=== PATIENT | male | born 1995 | race Caucasian/White ===

== ENCOUNTER 2018-06-25 15:36 | Emergency (ER) | payer OTHER, SELFPAY ==
--- NOTE | 2018-06-25 16:27 | RAD REPORT ---
EXAM DESCRIPTION: RAD - Hand Left 3 View - 06/25/2018 4:18 pm CLINICAL HISTORY: PAIN COMPARISON: No comparisons FINDINGS: No fracture or dislocation is seen of the left hand.
--- NOTE | 2018-06-25 16:44 | ER ---
Nurse's Notes [facility] Name: Kenyon Ricardo Age: 23 yrs Sex: Male : 1995 Arrival Date: 06/25/2018 Time: 15:39 Bed 20 Private MD: None, None Diagnosis: Sprain of other part of left wrist and hand Presentation: 06/25 15:42 Presenting complaint: Patient states: I punched a concrete wall with my left hand a la1 couple days ago and it is still hurting me, Pt reports pain in left wrist and hand. Transition of care: patient was not received from another setting of care. Onset of symptoms was June 25, 2018. Risk Assessment: Do you want to hurt yourself or someone else? Patient reports no desire to harm self or others. Initial Sepsis Screen: Does the patient meet any 2 criteria? No. Patient's initial sepsis screen is negative. Does the patient have a suspected source of infection? No. Patient's initial sepsis screen is negative. Care prior to arrival: None. 15:42 Method Of Arrival: Ambulatory la1 15:42 Acuity: ZEFERINO 4 la1 Historical: - Allergies: 15:43 No Known Allergies; la1 - PMHx: 15:43 None; la1 - Immunization history:: Adult Immunizations up to date. - Social history:: Smoking status: Patient uses tobacco products, smokes one pack cigarettes per day. - Ebola Screening: : No symptoms or risks identified at this time. Screenin:00 Abuse screen: Denies threats or abuse. Denies injuries from another. Nutritional jl7 screening: No deficits noted. Tuberculosis screening: No symptoms or risk factors identified. Fall Risk None identified. Assessment: 16:00 General: Appears in no apparent distress. uncomfortable, Behavior is calm, cooperative, jl7 appropriate for age. Pain: Complains of pain in dorsal aspect of left wrist Pain currently is 8 out of 10 on a pain scale. Pain began 2-3 days ago. Is continuous. Neuro: Level of Consciousness is awake, alert, obeys commands, Oriented to person, place, time, situation. Cardiovascular: Patient's skin is warm and dry. Respiratory: Airway is patent Respiratory effort is even, unlabored, Respiratory pattern is regular, symmetrical. Derm: Skin is pink, warm \T\ dry. Musculoskeletal: Capillary refill < 3 seconds, Range of motion: limited in left wrist Swelling present in dorsum of left hand. Vital Signs: 15:43 BP 129 / 71; Pulse 71; Resp 16; Temp 97.1; Pulse Ox 98% on R/A; Weight 70.31 kg; Height la1 5 ft. 7 in. (170.18 cm); Pain 6/10; 15:43 Body Mass Index 24.28 (70.31 kg, 170.18 cm) la1 ED Course: 15:39 Patient arrived in ED. mr 15:39 None, None is Private Physician. mr 15:43 Triage completed. la1 15:44 Beverley Parker, JOANNE is Primary Nurse. jl7 15:44 Arm band placed on right wrist. la1 15:49 Aakash Hilton NP is PHCP. pm1 15:49 Hector Christian MD is Attending Physician. pm1 16:00 Patient has correct armband on for positive identification. Bed in low position. Call jl7 light in reach. Side rails up X 1. 16:00 No provider procedures requiring assistance completed. Patient did not have IV access jl7 during this emergency room visit. 16:18 Hand Left 3 View XRAY In Process Unspecified. EDMS Administered Medications: No medications were administered Outcome: 16:44 Discharge ordered by MD. pm1 17:01 Discharged to home ambulatory. jl7 17:01 Condition: stable 17:01 Discharge instructions given to patient, Instructed on discharge instructions, follow up and referral plans. medication usage, Demonstrated understanding of instructions, follow-up care, medications, Prescriptions given X 1. 17:02 Patient left the ED. jl7 Signatures: Dispatcher [employer] EDMS Moreira, Laurel Byron Chang, RN RN la1 Aakash Hilton, ARGELIA PLAY READER pm1 Beverley Parker, JOANNE macias
--- NOTE | 2018-06-25 16:44 | EDPHYS ---
Physician Documentation [facility] Name: Kenyon Ricardo Age: 23 yrs Sex: Male : 1995 Arrival Date: 06/25/2018 Time: 15:39 Bed 20 Private MD: None, None ED Physician Hector Christian HPI: 06/25 16:36 This 23 yrs old Male presents to ER via Ambulatory with complaints of Left pm1 Hand Injury. 16:36 The patient or guardian reports pain. The complaints affect the left hand diffusely. pm1 Context: The problem was sustained at home, resulted from Punching wall. Onset: The symptoms/episode began/occurred 2 day(s) ago. Modifying factors: The symptoms are alleviated by nothing, the symptoms are aggravated by movement. Associated signs and symptoms: Pertinent negatives: cyanosis distally, decreased sensation distally, numbness distally, tingling distally. Severity of symptoms: in the emergency department the symptoms are unchanged. The patient has not experienced similar symptoms in the past. The patient has not recently seen a physician. Historical: - Allergies: 15:43 No Known Allergies; la1 - PMHx: 15:43 None; la1 - Immunization history:: Adult Immunizations up to date. - Social history:: Smoking status: Patient uses tobacco products, smokes one pack cigarettes per day. - Ebola Screening: : No symptoms or risks identified at this time. ROS: 16:36 Constitutional: Negative for fever, chills, and weight loss, Eyes: Negative for injury, pm1 pain, redness, and discharge, ENT: Negative for injury, pain, and discharge, Neck: Negative for injury, pain, and swelling, Cardiovascular: Negative for chest pain, palpitations, and edema, Respiratory: Negative for shortness of breath, cough, wheezing, and pleuritic chest pain, Abdomen/GI: Negative for abdominal pain, nausea, vomiting, diarrhea, and constipation, Back: Negative for injury and pain, : Negative for injury, bleeding, discharge, and swelling. 16:36 Skin: Negative for injury, rash, and discoloration, Neuro: Negative for headache, weakness, numbness, tingling, and seizure. 16:36 MS/extremity: Positive for pain, of the left hand and dorsum of left hand and left wrist. Exam: 16:36 Constitutional: This is a well developed, well nourished patient who is awake, alert, pm1 and in no acute distress. Head/Face: Normocephalic, atraumatic. Neck: Trachea midline, no thyromegaly or masses palpated, and no cervical lymphadenopathy. Supple, full range of motion without nuchal rigidity, or vertebral point tenderness. No Meningismus. Chest/axilla: Normal chest wall appearance and motion. Nontender with no deformity. No lesions are appreciated. Cardiovascular: Regular rate and rhythm with a normal S1 and S2. No gallops, murmurs, or rubs. Normal PMI, no JVD. No pulse deficits. Respiratory: Lungs have equal breath sounds bilaterally, clear to auscultation and percussion. No rales, rhonchi or wheezes noted. No increased work of breathing, no retractions or nasal flaring. Abdomen/GI: Soft, non-tender, with normal bowel sounds. No distension or tympany. No guarding or rebound. No evidence of tenderness throughout. Back: No spinal tenderness. No costovertebral tenderness. Full range of motion. Skin: Warm, dry with normal turgor. Normal color with no rashes, no lesions, and no evidence of cellulitis. 16:36 Musculoskeletal/extremity: Extremities: grossly normal except: noted in the dorsum of left hand over 4th and 5th metacarpals: tenderness, ROM: full active range of motion, in the left wrist and left hand, full passive range of motion, in the left wrist and left hand, Circulation is intact in all extremities. Sensation intact. 16:36 Neuro: Orientation: is normal, Motor: is normal, moves all fours, Gait: is steady, at a normal pace, without difficulty. Vital Signs: 15:43 BP 129 / 71; Pulse 71; Resp 16; Temp 97.1; Pulse Ox 98% on R/A; Weight 70.31 kg; Height la1 5 ft. 7 in. (170.18 cm); Pain 6/10; 15:43 Body Mass Index 24.28 (70.31 kg, 170.18 cm) la1 MDM: 15:49 Patient medically screened. pm1 16:43 Data reviewed: vital signs. Data interpreted: Pulse oximetry: on room air is 98 %. pm1 Interpretation: normal. Counseling: I had a detailed discussion with the patient and/or guardian regarding: the historical points, exam findings, and any diagnostic results supporting the discharge/admit diagnosis, radiology results, the need for outpatient follow up, to return to the emergency department if symptoms worsen or persist or if there are any questions or concerns that arise at home. 06/25 15:57 Order name: Hand Left 3 View XRAY; Complete Time: 16:35 pm1 06/25 16:44 Order name: Splint - Wrist; Complete Time: 17:01 pm1 Administered Medications: No medications were administered Disposition: 17:54 Co-signature as Attending Physician, Hector Christian MD. rn Disposition: 06/25/18 16:44 Discharged to Home. Impression: Sprain of other part of left wrist and hand. - Condition is Stable. - Discharge Instructions: Wrist Splint, Wrist Sprain, Hand Pain. - Prescriptions for Naprosyn 500 mg Oral Tablet - take 1 tablet by ORAL route 2 times per day take with food; 30 tablet. - Medication Reconciliation Form, Thank You Letter, Work release form form. - Follow up: Emergency Department; When: As needed; Reason: Worsening of condition. Follow up: Private Physician; When: 2 - 3 days; Reason: Recheck today's complaints, Continuance of care, Re-evaluation by your physician. - Problem is new. - Symptoms have improved. Signatures: Dispatcher [employer] EDMS Hector Christian MD MD rn Attema, Byron RN RN la1 Aakash Hilton, CASHIER COURTESY BOOTH CASHIER COURTESY BOOTH pm1 Beverley Parker RN RN jl7 Corrections: (The following items were deleted from the chart) 17:02 16:44 06/25/2018 16:44 Discharged to Home. Impression: Sprain of other part of left jl7 wrist and hand. Condition is Stable. Forms are Medication Reconciliation Form, Thank You Letter, Antibiotic Education, Prescription Opioid Use. Follow up: Emergency Department; When: As needed; Reason: Worsening of condition. Follow up: Private Physician; When: 2 - 3 days; Reason: Recheck today's complaints, Continuance of care, Re-evaluation by your physician. Problem is new. Symptoms have improved. pm1
== END 2018-06-25 17:02 | disposition home or self-care (01) ==
LOC: ER 15:36
DX: S63.8X2A Sprain of other part of left wrist and hand, initial encounter (principal); W22.09XA Striking against other stationary object, initial encounter; Y93.89 Activity, other specified; Y92.009 Unspecified place in unspecified non-institutional (private) residence as the place of occurrence of the external cause; F17.210 Nicotine dependence, cigarettes, uncomplicated
CPT/HCPCS: 99283

== ENCOUNTER 2018-11-19 16:14 | Emergency (ER) | payer SELFPAY ==
[2018-11-19] MEDS ORDERED: TETANUS & DIPHTHERIA TOX,ADULT 0.5 ML VIAL ONE (17:33)
[2018-11-19] MEDS ORDERED: LIDOCAINE 1% 20 ML MDV ONE (18:21)
--- NOTE | 2018-11-19 18:45 | ER ---
Nurse's Notes [facility] Name: Kenyon Ricardo Age: 23 yrs Sex: Male : 1995 Arrival Date: 11/19/2018 Time: 16:16 Bed 5 Private MD: Diagnosis: Laceration of the left hand Presentation: 11/19 16:22 Presenting complaint: Patient states: Laceration to L hand sustained by box tender 1 ss hour ago while cutting sheet rock. Transition of care: patient was not received from another setting of care. Complicating Factors: There are no complicating factors for this patient. Onset of symptoms was November 19, 2018. Risk Assessment: Do you want to hurt yourself or someone else? Patient reports no desire to harm self or others. Initial Sepsis Screen: Does the patient meet any 2 criteria? No. Patient's initial sepsis screen is negative. Does the patient have a suspected source of infection? No. Patient's initial sepsis screen is negative. Care prior to arrival: None. 16:22 Method Of Arrival: Ambulatory ss 16:22 Acuity: ZEFERINO 4 ss Historical: - Allergies: 16:23 No Known Allergies; ss - Home Meds: 16:23 None [Active]; ss - PMHx: 16:23 None; ss - PSHx: 16:23 None; ss - Immunization history:: Adult Immunizations up to date. - Social history:: Smoking status: Patient uses tobacco products, smokes one-half pack cigarettes per day. - Ebola Screening: : Patient denies exposure to infectious person Patient denies travel to an Ebola-affected area in the 21 days before illness onset. Screenin:35 Abuse screen: Denies threats or abuse. Denies injuries from another. Nutritional hb screening: No deficits noted. Tuberculosis screening: No symptoms or risk factors identified. Fall Risk None identified. Assessment: 17:30 General: Appears in no apparent distress. Behavior is calm, cooperative. Pain: Pain hb currently is 4 out of 10 on a pain scale. Neuro: Level of Consciousness is awake, alert, obeys commands, Oriented to person, place, time, situation. Cardiovascular: Capillary refill < 3 seconds Patient's skin is warm and dry. Respiratory: Airway is patent Respiratory effort is even, unlabored, Respiratory pattern is regular, symmetrical. GI: No signs and/or symptoms were reported involving the gastrointestinal system. : No signs and/or symptoms were reported regarding the genitourinary system. EENT: No signs and/or symptoms were reported regarding the EENT system. Derm: Skin is pink, warm \T\ dry. Musculoskeletal: No signs and/or symptoms reported regarding the musculoskeletal system. Injury Description: Laceration sustained to palmar aspect of proximal phalanx of left little finger is clean, 0.5 to 2.5 cm long, not bleeding. 18:30 Reassessment: Patient appears in no apparent distress at this time. Patient and/or hb family updated on plan of care and expected duration. Pain level reassessed. Patient is alert, oriented x 3, equal unlabored respirations, skin warm/dry/pink. Vital Signs: 16:23 BP 133 / 68; Pulse 67; Resp 15; Temp 98.6(TE); Pulse Ox 98% on R/A; Weight 68.04 kg; ss Height 5 ft. 7 in. (170.18 cm); Pain 4/10; 18:05 BP 114 / 68; Pulse 68; Resp 15; Pulse Ox 100% on R/A; hb 16:23 Body Mass Index 23.49 (68.04 kg, 170.18 cm) ED Course: 16:16 Patient arrived in ED. as 16:22 Triage completed. 16:23 Arm band placed on right wrist. 17:06 Dmitriy Edge PA is PHCP. [facility] 17:06 Moises Johnson MD is Attending Physician. [facility] 17:14 Diana Cuello, RN is Primary Nurse. hb 17:35 Patient has correct armband on for positive identification. Bed in low position. Call light in reach. Side rails up X 1. 18:59 No provider procedures requiring assistance completed. Patient did not have IV access hb during this emergency room visit. Administered Medications: 17:23 Drug: Tetanus-Diphtheria Toxoid Adult 0.5 ml {Ict Business Analyst: [employer]. Exp: hb 09/02/2020. Lot #: [id number]. } Route: IM; Site: right deltoid; 18:00 Follow up: Response: No adverse reaction hb 18:29 Drug: Lidocaine (1 %) 5 ml {Note: by BERKLEY Izaguirre.} Volume: 20 ml; Route: Infiltration; hb Outcome: 18:45 Discharge ordered by MD. rae 18:59 Discharged to home ambulatory. hb 18:59 Condition: stable 18:59 Discharge instructions given to patient, Instructed on discharge instructions, follow up and referral plans. medication usage, wound care, Demonstrated understanding of instructions, follow-up care, medications, wound care. 19:00 Patient left the ED. hb Signatures: Dmitriy Edge PA PA jmm Martinez, Amelia as Smirch, Shelby, JOANNE RN Diana Cuello RN RN hb
--- NOTE | 2018-11-19 18:46 | EDPHYS ---
Physician Documentation [facility] Name: Kenyon Ricardo Age: 23 yrs Sex: Male : 1995 Arrival Date: 11/19/2018 Time: 16:16 Bed 5 Private MD: ED Physician Moises Johnson HPI: 11/19 17:14 This 23 yrs old Male presents to ER via Ambulatory with complaints of jmm Laceration To Hand. 17:14 Onset: The symptoms/episode began/occurred acutely. Associated signs and symptoms: jmm Pertinent negatives: heavy bleeding, loss of consciousness, numbness distal to injury. This is a 23 year old male with no chronic medical conditions that presents to the ED with complaints of a laceration to his left hand. Patient accidently cut his finger with a knife when cutting sheet metal. patient denies other injury. . Historical: - Allergies: 16:23 No Known Allergies; ss - Home Meds: 16:23 None [Active]; ss - PMHx: 16:23 None; ss - PSHx: 16:23 None; ss - Immunization history:: Adult Immunizations up to date. - Social history:: Smoking status: Patient uses tobacco products, smokes one-half pack cigarettes per day. - Ebola Screening: : Patient denies exposure to infectious person Patient denies travel to an Ebola-affected area in the 21 days before illness onset. ROS: 17:14 Constitutional: Negative for fever, chills, and weight loss, Cardiovascular: Negative jmm for chest pain, palpitations, and edema, Respiratory: Negative for shortness of breath, cough, wheezing, and pleuritic chest pain. 17:14 MS/extremity: Positive for laceration. 17:14 All other systems are negative. Exam: 17:14 Head/Face: atraumatic. Eyes: EOMI, no conjunctival erythema appreciated ENT: Moist jmm Mucus Membranes Neck: Trachea midline, Supple Chest/axilla: Normal chest wall appearance and motion. Cardiovascular: Regular rate and rhythm. No edema appreciated Respiratory: Normal respirations, no respiratory distress appreciated Abdomen/GI: Non distended, soft Back: Normal ROM 17:14 Constitutional: The patient appears in no acute distress, alert, awake. 17:14 Musculoskeletal/extremity: FROM appreciated to the left 5th finger, full strength against resistance appreciated. 17:14 Skin: 1 cm laceration noted to the ulnar side of the base of the left 5th finger. 17:14 Neuro: Orientation: is normal, Mentation: is normal, Memory: is normal. 17:14 Psych: Behavior/mood is pleasant, cooperative. Vital Signs: 16:23 BP 133 / 68; Pulse 67; Resp 15; Temp 98.6(TE); Pulse Ox 98% on R/A; Weight 68.04 kg; ss Height 5 ft. 7 in. (170.18 cm); Pain 4/10; 18:05 BP 114 / 68; Pulse 68; Resp 15; Pulse Ox 100% on R/A; hb 16:23 Body Mass Index 23.49 (68.04 kg, 170.18 cm) ss Laceration: 18:43 Wound Repair of 15cm ( 5.9in ) subcutaneous laceration to left hand. Distal jmm neuro/vascular/tendon intact. Anesthesia: Local anesthetic administered with 1 mls of 1% lidocaine. Wound prep: Moderate cleansing with betadine by me. Skin closed with 3 5-0 Prolene using simple sutures and sterile technique. Dressed with non-adherent dressing. Patient tolerated well. MDM: 17:07 [facility] 18:43 Data reviewed: vital signs, nurses notes. Counseling: I had a detailed discussion with [facility] the patient and/or guardian regarding: the historical points, exam findings, and any diagnostic results supporting the discharge/admit diagnosis, the need for outpatient follow up, to return to the emergency department if symptoms worsen or persist or if there are any questions or concerns that arise at home. ED course: I do not suspect tendon injury. FROM is appreciated. Patient given wound infection return precautions. Patient understood and agrees with the plan of care. . Administered Medications: 17:23 Drug: Tetanus-Diphtheria Toxoid Adult 0.5 ml {Fisheries Specialist: [employer]. Exp: hb 09/02/2020. Lot #: [id number]. } Route: IM; Site: right deltoid; 18:00 Follow up: Response: No adverse reaction hb 18:29 Drug: Lidocaine (1 %) 5 ml {Note: by BERKLEY Izaguirre.} Volume: 20 ml; Route: Infiltration; hb Disposition: 11/20 08:26 Co-signature as Attending Physician, Moises Johnson MD. Disposition: 05/17/19 18:45 Discharged to Home. Impression: Laceration of the left hand. - Condition is Stable. - Discharge Instructions: Laceration Care, Adult. - Medication Reconciliation Form, Thank You Letter, Antibiotic Education, Prescription Opioid Use form. - Follow up: Private Physician; When: 2 - 3 days; Reason: Recheck today's complaints, Continuance of care, Re-evaluation by your physician. Signatures: Dmitriy Edge PA PA jmm Smirch, Shelby, RN RN Diana Cuello RN RN Moises Johnson MD MD Corrections: (The following items were deleted from the chart) 11/19 19:00 18:45 11/19/2018 18:45 Discharged to Home. Impression: Laceration of the left hand. hb Condition is Stable. Forms are Medication Reconciliation Form, Thank You Letter, Antibiotic Education, Prescription Opioid Use. Follow up: Private Physician; When: 2 - 3 days; Reason: Recheck today's complaints, Continuance of care, Re-evaluation by your physician. kyra
== END 2018-11-19 19:00 | disposition home or self-care (01) ==
LOC: ER 16:14
PROC: 0JQK0ZZ Repair Left Hand Subcutaneous Tissue and Fascia, Open Approach (ICD-10-PCS; principal; 2018-11-19)
DX: S61.412A Laceration without foreign body of left hand, initial encounter (principal); F17.210 Nicotine dependence, cigarettes, uncomplicated; W45.8XXA Other foreign body or object entering through skin, initial encounter; Y93.9 Activity, unspecified; Y92.9 Unspecified place or not applicable; Z23 Encounter for immunization
CPT/HCPCS: 90471; 90714; 99283

== ENCOUNTER 2018-11-29 16:53 | Emergency (ER) | payer SELFPAY ==
--- NOTE | 2018-11-29 17:52 | ER ---
Nurse's Notes [facility] Name: Kenyon Ricardo Age: 23 yrs Sex: Male : 1995 Arrival Date: 11/29/2018 Time: 16:56 Bed 12 Private MD: Unknown, Unknown Diagnosis: Encounter for removal of sutures Presentation: 11/29 16:57 Presenting complaint: Patient states: need left hand sutures removed, were placed here sv 10 days ago. Transition of care: patient was not received from another setting of care. Onset of symptoms was November 29, 2018. Risk Assessment: Do you want to hurt yourself or someone else? Patient reports no desire to harm self or others. Initial Sepsis Screen: Does the patient meet any 2 criteria? No. Patient's initial sepsis screen is negative. Does the patient have a suspected source of infection? No. Patient's initial sepsis screen is negative. Care prior to arrival: None. 16:57 Method Of Arrival: Ambulatory sv 16:57 Acuity: ZEFERINO 5 sv Historical: - Allergies: 16:58 No Known Allergies; sv - PSHx: 16:58 None; sv - Immunization history:: Adult Immunizations up to date. - Social history:: Smoking status: Patient uses tobacco products, smokes 1.5 packs per day, Patient/guardian denies using alcohol, street drugs, The patient lives with family. - Ebola Screening: : No symptoms or risks identified at this time. - Family history:: not pertinent. Screenin:59 Abuse screen: Denies threats or abuse. Denies injuries from another. Nutritional sv screening: No deficits noted. Tuberculosis screening: No symptoms or risk factors identified. Fall Risk None identified. Vital Signs: 16:58 BP 124 / 65; Pulse 70; Resp 16; Temp 98; Pulse Ox 100% ; Weight 62.14 kg; Height 5 ft. sv 7 in. (170.18 cm); Pain 0/10; 16:58 Body Mass Index 21.46 (62.14 kg, 170.18 cm) sv ED Course: 16:56 Patient arrived in ED. ag5 16:57 Unknown, Unknown is Private Physician. ag5 16:58 Triage completed. sv 16:58 Arm band placed on. sv 17:00 John Pan MD is Attending Physician. ma2 17:59 Patient has correct armband on for positive identification. sv 17:59 No provider procedures requiring assistance completed. Patient did not have IV access sv during this emergency room visit. Administered Medications: No medications were administered Outcome: 17:51 Discharge ordered by . aliza 17:59 Discharged to home ambulatory, with significant other. sv 17:59 Condition: stable 17:59 Discharge instructions given to patient, Instructed on discharge instructions, follow up and referral plans. wound care, Demonstrated understanding of instructions, follow-up care, wound care. 17:59 No charge visit due to suture removal. 17:59 Patient left the ED. sv Signatures: Megan Kaiser RN RN John Tenorio MD MD ma2 Jeremias Stewart ag5
--- NOTE | 2018-11-29 17:52 | EDPHYS ---
Physician Documentation [facility] Name: Kenyon Ricardo Age: 23 yrs Sex: Male : 1995 Arrival Date: 11/29/2018 Time: 16:56 Bed 12 Private MD: Unknown, Unknown ED Physician John Pan HPI: 11/29 17:49 This 23 yrs old Male presents to ER via Ambulatory with complaints of ma2 STITCHES REMOVAL. 17:49 The patient or guardian reports here for sutures removal . The complaints affect the ma2 left hand diffusely. Onset: The symptoms/episode began/occurred suddenly, 10 day(s) ago. Associated signs and symptoms: Pertinent positives: Pertinent negatives: decreased sensation distally, nausea. Severity of symptoms: At their worst the symptoms were mild, in the emergency department the symptoms are unchanged. Historical: - Allergies: 16:58 No Known Allergies; sv - PSHx: 16:58 None; sv - Immunization history:: Adult Immunizations up to date. - Social history:: Smoking status: Patient uses tobacco products, smokes 1.5 packs per day, Patient/guardian denies using alcohol, street drugs, The patient lives with family. - Ebola Screening: : No symptoms or risks identified at this time. - Family history:: not pertinent. ROS: 17:49 Constitutional: Negative for fever, chills, and weight loss, Cardiovascular: Negative ma2 for chest pain, palpitations, and edema, Respiratory: Negative for shortness of breath, cough, wheezing, and pleuritic chest pain, Abdomen/GI: Negative for abdominal pain, nausea, diarrhea, and constipation. 17:49 MS/extremity: Positive for 17:49 All other systems are negative. Exam: 17:49 Constitutional: This is a well developed, well nourished patient who is awake, alert, ma2 and in no acute distress. Chest/axilla: Normal chest wall appearance and motion. Nontender with no deformity. No lesions are appreciated. Cardiovascular: Regular rate and rhythm with a normal S1 and S2. No gallops, murmurs, or rubs. Normal PMI, no JVD. No pulse deficits. Respiratory: Lungs have equal breath sounds bilaterally, clear to auscultation and percussion. No rales, rhonchi or wheezes noted. No increased work of breathing, no retractions or nasal flaring. Abdomen/GI: Soft, non-tender, with normal bowel sounds. No distension or tympany. No guarding or rebound. No evidence of tenderness throughout. Male : Normal genitalia with no discharge or lesions. Skin: Warm, dry with normal turgor. Normal color with no rashes, no lesions, and no evidence of cellulitis. MS/ Extremity: Pulses equal, no cyanosis. Neurovascular intact. Full, normal range of motion. 17:49 Skin: laceration dry well healed. Vital Signs: 16:58 BP 124 / 65; Pulse 70; Resp 16; Temp 98; Pulse Ox 100% ; Weight 62.14 kg; Height 5 ft. sv 7 in. (170.18 cm); Pain 0/10; 16:58 Body Mass Index 21.46 (62.14 kg, 170.18 cm) sv MDM: 17:00 Patient medically screened. ma2 17:49 Data reviewed: vital signs, nurses notes. Counseling: I had a detailed discussion with maAlix the patient and/or guardian regarding: the historical points, exam findings, and any diagnostic results supporting the discharge/admit diagnosis, the presence of at least one elevated blood pressure reading (>120/80) during this emergency department visit. Response to treatment: the patient's symptoms have resolved after treatment. ED course: sutures removed . Administered Medications: No medications were administered Disposition: 11/29/18 17:51 Discharged to Home. Impression: Encounter for removal of sutures. - Condition is Stable. - Discharge Instructions: Suture Removal, Care After. - Medication Reconciliation Form, Thank You Letter, Antibiotic Education, Prescription Opioid Use form. - Follow up: Private Physician; When: Tomorrow; Reason: Continuance of care. Signatures: Megan Kaiser RN RN sv Alzahri, Mohammad, MD MD ma2 Corrections: (The following items were deleted from the chart) 17:59 17:51 11/29/2018 17:51 Discharged to Home. Impression: Encounter for removal of sv sutures. Condition is Stable. Forms are Medication Reconciliation Form, Thank You Letter, Antibiotic Education, Prescription Opioid Use. Follow up: Private Physician; When: Tomorrow; Reason: Continuance of care. ma2
== END 2018-11-29 17:59 | disposition home or self-care (01) ==
LOC: ER 16:53
DX: Z48.02 Encounter for removal of sutures (principal)

== ENCOUNTER 2020-04-15 00:43 | Emergency (ER) | payer SELFPAY ==
--- NOTE | 2020-04-15 02:31 | ER ---
Nurse's Notes [facility] Name: Kenyon Ricardo Age: 24 yrs Sex: Male : 1995 Arrival Date: 04/15/2020 Time: 00:51 Bed 5 Private MD: Diagnosis: Other viral infections of unspecified site Presentation: 04/15 00:54 Chief complaint: Patient states: I have a soar throat, congestion, headache, and sharp jb4 chest pain. I had cold sweats too. It all started last night. 00:54 Coronavirus screen: Client denies travel out of the [place] in the last 14 days. Client jb4 presents with at least one sign or symptom that may indicate coronavirus-19. Standard/surgical mask placed on the client. Provider contacted for isolation considerations. Ebola Screen: No symptoms or risks identified at this time. Initial Sepsis Screen: Does the patient meet any 2 criteria? HR > 90 bpm. Yes Does the patient have a suspected source of infection? No. Patient's initial sepsis screen is negative. Risk Assessment: Do you want to hurt yourself or someone else? Patient reports no desire to harm self or others. Onset of symptoms was April 15, 2020. Transition of care: patient was not received from another setting of care. 00:54 Method Of Arrival: Ambulatory jb4 00:54 Acuity: ZEFERINO 4 jb4 Historical: - Allergies: 00:54 No Known Allergies; jb4 - Home Meds: 00:54 None [Active]; jb4 - PMHx: 00:54 Heart Murmur; jb4 - PSHx: 00:54 None; jb4 - Immunization history:: Adult Immunizations up to date. - Social history:: Smoking status: Patient/guardian denies using tobacco, Patient/guardian denies using alcohol, street drugs. Screenin:23 Abuse screen: Denies threats or abuse. Nutritional screening: No deficits noted. ea Tuberculosis screening: No symptoms or risk factors identified. Fall Risk None identified. Assessment: 01:22 General: Appears uncomfortable, Behavior is calm, cooperative, appropriate for age. ea Pain: Complains of pain in left aspect of posterior pharynx and right aspect of posterior pharynx. Neuro: Level of Consciousness is awake, alert, obeys commands, Oriented to person, place, time, situation. Cardiovascular: Patient's skin is warm and dry. Respiratory: Airway is patent Respiratory effort is even, unlabored. EENT: Throat is reddened. Derm: Skin is dry, Skin is pale, Skin temperature is warm. 02:40 Reassessment: Patient and/or family updated on plan of care and expected duration. Pain ea level reassessed. Patient is alert, oriented x 3, equal unlabored respirations, skin warm/dry/pink. Discharge instruction given to patient, verbalized the understanding of instruction. Pt left ED ambulatory tolerating well. Vital Signs: 00:54 BP 131 / 83; Pulse 92; Resp 16; Temp 98.8(O); Pulse Ox 98% on R/A; Weight 68.04 kg (R); jb4 Height 5 ft. 7 in. (170.18 cm) (R); Pain 5/10; 02:40 BP 120 / 70; Pulse 88; Resp 18; Pulse Ox 98% ; ea 00:54 Body Mass Index 23.49 (68.04 kg, 170.18 cm) jb4 ED Course: 00:51 Patient arrived in ED. ag3 00:54 Arm band placed on right wrist. jb4 00:56 Sami Escobar, RN is Primary Nurse. jb4 00:59 Luis Alberto Soler MD is Attending Physician. tw4 01:12 Triage completed. jb4 01:23 Patient has correct armband on for positive identification. Bed in low position. Call ea light in reach. Side rails up X 1. 02:39 No provider procedures requiring assistance completed. Patient did not have IV access ea during this emergency room visit. Administered Medications: No medications were administered Outcome: 02:22 Discharge ordered by . tw4 02:39 Condition: stable ea 02:39 Discharge instructions given to patient, Instructed on discharge instructions, follow up and referral plans. Demonstrated understanding of instructions, follow-up care. 02:40 Discharged to home ambulatory, with family. ea 02:45 Patient left the ED. ea Addendum: 04/18/2020 16:55 Addendum: COVID-19 Result: Negative result given to RN to notify pt. Attempted to h b contact pt regarding negative COVID-19 swab results. Signatures: Diana Cuello RN RN Sami Escobar RN RN jb4 Ju Mueller RN RN ea Wadley, Luis Alberto, MD MD tw4 Shannon Sr ag3 Corrections: (The following items were deleted from the chart) 04/15 02:41 02:40 Respiratory: mishel florentino 02:45 02:45 BP 120 / 70; Pulse 88bpm; Resp 18bpm; Pulse Ox 98%; mishel florentino
--- NOTE | 2020-04-15 02:31 | EDPHYS ---
Physician Documentation [facility] Name: Kenyon Ricardo Age: 24 yrs Sex: Male : 1995 Arrival Date: 04/15/2020 Time: 00:51 Bed 5 Private MD: ED Physician Luis Alberto Soler HPI: 04/15 02:42 This 24 yrs old Male presents to ER via Ambulatory with complaints of Sore tw4 Throat, Chest Pain. 02:42 The patient presents with sore throat. The patient describes throat pain as dry. Onset: tw4 The symptoms/episode began/occurred today. Severity of symptoms: At their worst the symptoms were mild, in the emergency department the symptoms are unchanged. Modifying factors: The symptoms are alleviated by nothing, the symptoms are aggravated by nothing. The patient has not experienced similar symptoms in the past. Historical: - Allergies: 00:54 No Known Allergies; jb4 - Home Meds: 00:54 None [Active]; jb4 - PMHx: 00:54 Heart Murmur; jb4 - PSHx: 00:54 None; jb4 - Immunization history:: Adult Immunizations up to date. - Social history:: Smoking status: Patient/guardian denies using tobacco, Patient/guardian denies using alcohol, street drugs. ROS: 02:42 Cardiovascular: Negative for chest pain, palpitations, and edema, Respiratory: Negative tw4 for shortness of breath, cough, wheezing, and pleuritic chest pain, Abdomen/GI: Negative for abdominal pain, nausea, vomiting, diarrhea, and constipation, Back: Negative for injury and pain, MS/Extremity: Negative for injury and deformity, Skin: Negative for injury, rash, and discoloration, Neuro: Negative for headache, weakness, numbness, tingling, and seizure. 02:42 Constitutional: Positive for body aches. 02:42 ENT: Positive for rhinorrhea, sore throat, Negative for injury or acute deformity, drainage from ear(s), ear pain, foreign body sensation, Gum pain hearing loss, pulling at ears, Teeth pain tinnitus. Exam: 02:42 Constitutional: This is a well developed, well nourished patient who is awake, alert, tw4 and in no acute distress. Head/Face: Normocephalic, atraumatic. Chest/axilla: Normal chest wall appearance and motion. Nontender with no deformity. No lesions are appreciated. Cardiovascular: Regular rate and rhythm with a normal S1 and S2. No gallops, murmurs, or rubs. Normal PMI, no JVD. No pulse deficits. Respiratory: Lungs have equal breath sounds bilaterally, clear to auscultation and percussion. No rales, rhonchi or wheezes noted. No increased work of breathing, no retractions or nasal flaring. Abdomen/GI: Soft, non-tender, with normal bowel sounds. No distension or tympany. No guarding or rebound. No evidence of tenderness throughout. Back: No spinal tenderness. No costovertebral tenderness. Full range of motion. MS/ Extremity: Pulses equal, no cyanosis. Neurovascular intact. Full, normal range of motion. Neuro: Awake and alert, GCS 15, oriented to person, place, time, and situation. Cranial nerves II-XII grossly intact. Motor strength 5/5 in all extremities. Sensory grossly intact. Cerebellar exam normal. Normal gait. Vital Signs: 00:54 BP 131 / 83; Pulse 92; Resp 16; Temp 98.8(O); Pulse Ox 98% on R/A; Weight 68.04 kg (R); jb4 Height 5 ft. 7 in. (170.18 cm) (R); Pain 5/10; 02:40 BP 120 / 70; Pulse 88; Resp 18; Pulse Ox 98% ; ea 00:54 Body Mass Index 23.49 (68.04 kg, 170.18 cm) jb4 MDM: 01:00 Patient medically screened. tw4 02:42 Differential diagnosis: Allergic rhinitis, cocksackie virus, group A strep tonsillitis, tw4 retropharyngeal abcess. Data reviewed: vital signs, nurses notes. Data interpreted: Pulse oximetry: Interpretation: normal. Counseling: I had a detailed discussion with the patient and/or guardian regarding: the historical points, exam findings, and any diagnostic results supporting the discharge/admit diagnosis, lab results. 04/15 02:31 Order name: Influenza Screen (A EDSC 04/15 02:31 Order name: Group A Streptococcus Rapid Sc EDSC 04/15 02:32 Order name: CORONAVIRUS EDSC 04/15 01:01 Order name: Document PUI#; Complete Time: 02:32 tw4 04/15 01:01 Order name: Droplet/Contact Precautions; Complete Time: 01:33 4 04/15 01:01 Order name: Labs collected and sent; Complete Time: 01:23 4 04/15 01:01 Order name: O2 Per Protocol; Complete Time: 01:16 4 04/15 02:32 Order name: EKG - Nurse/Tech; Complete Time: 02:39 4 04/15 02:32 Order name: Throat Culture EDMS Administered Medications: No medications were administered Disposition: 04/15/20 02:22 Discharged to Home. Impression: Other viral infections of unspecified site. - Condition is Stable. - Discharge Instructions: Viral Respiratory Infection. - Work release form, Family Work Release, Medication Reconciliation Form, Thank You Letter, Antibiotic Education, Prescription Opioid Use form. - Follow up: Private Physician; When: Upon discharge from the Emergency Department; Reason: Recheck today's complaints, Continuance of care, Re-evaluation by your physician. - Problem is new. - Symptoms have improved. Signatures: Dispatcher [employer] EDSC Sami Escobar RN RN jb4 Ju Mueller RN RN ea Wadley, Terrence, MD MD tw4 Corrections: (The following items were deleted from the chart) 02:45 02:22 04/15/2020 02:22 Discharged to Home. Impression: Other viral infections of ea unspecified site. Condition is Stable. Forms are Medication Reconciliation Form, Thank You Letter, Antibiotic Education, Prescription Opioid Use. Follow up: Private Physician; When: Upon discharge from the Emergency Department; Reason: Recheck today's complaints, Continuance of care, Re-evaluation by your physician. Problem is new. Symptoms have improved. 4
[2020-04-15 02:51] VITALS: TEMP 98.8; O2SAT 98
[2020-04-15 02:52] VITALS: BP 120/70
--- NOTE | 2020-04-16 07:44 | EKG ---
Test Date: 2020-04-15 Test Time: 02:40:37 Truck Driver: TANNER MEASUREMENT RESULTS: Intervals: Rate: 84 UT: 158 QRSD: 94 QT: 338 QTc: 399 [place]: P: 41 UT: 158 QRS: 26 T: 56 INTERPRETIVE STATEMENTS: Normal sinus rhythm Incomplete right bundle branch block Borderline ECG Compared to ECG 10/20/2012 14:17:34 Incomplete right bundle-branch block now present Electronically Signed On 04-16-20 07:42:58 CDT by Jermaine Oconnor
== END 2020-04-15 02:45 | disposition home or self-care (01) ==
LOC: ER 00:43
DX: B34.8 Other viral infections of unspecified site (principal); Z20.828 Contact with and (suspected) exposure to other viral communicable diseases
CPT/HCPCS: 87070; 87081; 87804; 93005; 99281; U0002

== ENCOUNTER 2020-11-14 17:48 | Emergency (ER) | payer SELFPAY ==
--- NOTE | 2020-11-14 18:46 | RAD REPORT ---
EXAM DESCRIPTION: RAD - Ankle Left 3 View -11/14/2020 6:38 pm CLINICAL HISTORY: Left ankle pain status post injury FINDINGS: No fracture or dislocation is seen.
--- NOTE | 2020-11-14 18:48 | ER ---
Nurse's Notes [facility] Name: Kenyon Ricardo Age: 25 yrs Sex: Male : 1995 Arrival Date: 11/14/2020 Time: 17:52 Bed 30 Private MD: Diagnosis: Pain in ankle and joints of foot Presentation: 11/14 18:07 Chief complaint: Patient states: jumped off a porch and hurt left ankle a few days ago, em denies any other injuries. Coronavirus screen: Client denies travel out of the [place] in the last 14 days. Ebola Screen: Patient negative for fever greater than or equal to 101.5 degrees Fahrenheit, and additional compatible Ebola Virus Disease symptoms Patient denies exposure to infectious person. Patient denies travel to an Ebola-affected area in the 21 days before illness onset. No symptoms or risks identified at this time. Initial Sepsis Screen: Does the patient meet any 2 criteria? No. Patient's initial sepsis screen is negative. Does the patient have a suspected source of infection? No. Patient's initial sepsis screen is negative. Risk Assessment: Do you want to hurt yourself or someone else? Patient reports no desire to harm self or others. Onset of symptoms was November 14, 2020. 18:07 Method Of Arrival: Ambulatory em 18:07 Acuity: ZEFERINO 4 em Historical: - Allergies: 18:08 No Known Allergies; em - PMHx: 18:08 Heart Murmur; em - PSHx: 18:08 None; em - Immunization history:: Adult Immunizations up to date. - Social history:: Smoking status: Patient denies any tobacco usage or history of. Screenin:30 Abuse screen: Denies threats or abuse. Denies injuries from another. Nutritional zb screening: No deficits noted. Tuberculosis screening: No symptoms or risk factors identified. Fall Risk None identified. Assessment: 18:31 General: Appears comfortable, Behavior is calm, cooperative, agitated. Pain: Complains zb of pain in left Achilles, left heel and anterior aspect of left ankle Pain does not radiate. Pain currently is 4 out of 10 on a pain scale. at worst was 9 out of 10 on a pain scale. Quality of pain is described as aching, throbbing, Pain began 2-3 days ago. Is continuous, Aggravated by increased activity, repositioning, weight bearing. Neuro: Level of Consciousness is awake, alert, obeys commands, Oriented to person, place, time, situation. Cardiovascular: Patient's skin is warm and dry. Respiratory: Airway is patent Respiratory effort is even, unlabored, Respiratory pattern is regular, symmetrical. Derm: Skin is intact, is healthy with good turgor, Skin is dry, Skin is normal. Musculoskeletal: Range of motion: limited in left ankle Swelling present in anterior aspect of left ankle Reports pain in anterior aspect of left ankle. 19:15 Reassessment: wound care completed, cleaned with normal saline, and dry dressing. d/c zb instructions given. gait even and steady. Vital Signs: 18:07 Pulse 68; Resp 18; Temp 98.0; Pulse Ox 99% on R/A; Weight 70.76 kg; Height 5 ft. 7 in. em (170.18 cm); Pain 5/10; 18:09 BP 115 / 62; em 18:07 Body Mass Index 24.43 (70.76 kg, 170.18 cm) em ED Course: 17:52 Patient arrived in ED. mr 18:08 Triage completed. em 18:08 Arm band placed on. em 18:12 Jaye Valdes FNP-C is PHCP. kb 18:12 Ezequiel Almeida MD is Attending Physician. kb 18:30 Candice Matos, JOANNE is Primary Nurse. zb 18:32 Patient has correct armband on for positive identification. Bed in low position. Call zb light in reach. Pulse ox on. NIBP on. Door closed. Noise minimized. 18:38 Ankle Left 3 View XRAY In Process Unspecified. EDMS 19:15 No provider procedures requiring assistance completed. Patient did not have IV access zb during this emergency room visit. Administered Medications: 19:00 Drug: [place] (HYDROcodone-acetaminophen) 5 mg-325 mg 1 tabs {Note: RASS 0.} Route: PO; zb 19:14 Follow up: Response: No adverse reaction zb Outcome: 18:48 Discharge ordered by . kb 19:16 Discharged to home ambulatory. zb 19:16 Condition: stable 19:16 Discharge instructions given to patient, Instructed on discharge instructions, follow up and referral plans. Demonstrated understanding of instructions, follow-up care. 19:16 Patient left the ED. zb Signatures: Dispatcher [employer] Jaye Ag, CUST[employer]S HOUSE BROKER-C C[employer] HOUSE BROKER-Renata Harish Laurel mr Omar Patino, RN Candice Wong RN RN zb Corrections: (The following items were deleted from the chart) 19:14 19:00 [place] (HYDROcodone-acetaminophen) 5 mg-325 mg 1 tabs PO zb zb
--- NOTE | 2020-11-14 18:49 | EDPHYS ---
Physician Documentation [facility] Name: Kenyon Ricardo Age: 25 yrs Sex: Male : 1995 Arrival Date: 11/14/2020 Time: 17:52 Bed 30 Private MD: BRYCE Physician Ezequiel Almeida HPI: 11/14 20:26 This 25 yrs old Male presents to ER via Ambulatory with complaints of Ankle kb Injury. 20:26 The patient presents with an abrasion, an injury, pain, swelling, tenderness. The kb complaints affect the left ankle. Onset: The symptoms/episode began/occurred 5 day(s) ago. Context: The problem was sustained at work, resulted from the patient falling, down stairs, The patient can fully bear weight on the affected extremity. the patient is able to ambulate. Associated signs and symptoms: Pertinent positives: swelling, Pertinent negatives: calf tenderness, fever, nausea, numbness, rash, tingling, vomiting, warmth, weakness. Modifying factors: The symptoms are alleviated by nothing, the symptoms are aggravated by weight bearing. Severity of symptoms: At their worst the symptoms were mild, moderate, in the emergency department the symptoms are unchanged. The patient has not experienced similar symptoms in the past. The patient has not recently seen a physician. Historical: - Allergies: 18:08 No Known Allergies; em - PMHx: 18:08 Heart Murmur; em - PSHx: 18:08 None; em - Immunization history:: Adult Immunizations up to date. - Social history:: Smoking status: Patient denies any tobacco usage or history of. ROS: 20:22 Constitutional: Negative for fever, chills, and weight loss, Neuro: Negative for kb headache, weakness, numbness, tingling, and seizure. 20:22 MS/extremity: Positive for injury or acute deformity, pain, swelling, tenderness, of the left ankle. 20:22 Skin: Positive for abrasion(s), of the left heel. Exam: 20:25 Constitutional: This is a well developed, well nourished patient who is awake, alert, kb and in no acute distress. Head/Face: Normocephalic, atraumatic. ENT: Moist Mucous membranes Respiratory: Respirations even and unlabored. No increased work of breathing, no retractions or nasal flaring. Neuro: Awake and alert, GCS 15, oriented to person, place, time, and situation. Moves all extremities. Normal gait. Psych: Awake, alert, with orientation to person, place and time. Behavior, mood, and affect are within normal limits. 20:25 Musculoskeletal/extremity: Extremities: grossly normal except: noted in the left ankle: abrasion, pain, swelling, tenderness, ROM: intact in all extremities, Circulation is intact in all extremities. Sensation intact. Weight bearing: able to fully bear weight. 20:25 Skin: injury, abrasion(s), moderate sized abrasion noted, of the left heel. Vital Signs: 18:07 Pulse 68; Resp 18; Temp 98.0; Pulse Ox 99% on R/A; Weight 70.76 kg; Height 5 ft. 7 in. em (170.18 cm); Pain 5/10; 18:09 BP 115 / 62; em 18:07 Body Mass Index 24.43 (70.76 kg, 170.18 cm) em MDM: 18:12 Patient medically screened. kb 20:22 Data reviewed: vital signs, nurses notes. Data interpreted: Pulse oximetry: on room air kb is 99 %. Interpretation: normal. Counseling: I had a detailed discussion with the patient and/or guardian regarding: the historical points, exam findings, and any diagnostic results supporting the discharge/admit diagnosis, radiology results, the need for outpatient follow up, a orthopedic surgeon, to return to the emergency department if symptoms worsen or persist or if there are any questions or concerns that arise at home. 11/14 18:13 Order name: Ankle Left 3 View XRAY; Complete Time: 18:47 kb 11/14 18:47 Order name: Wound Care; Complete Time: 19:15 kb Administered Medications: 19:00 Drug: [place] (HYDROcodone-acetaminophen) 5 mg-325 mg 1 tabs {Note: RASS 0.} Route: PO; zb 19:14 Follow up: Response: No adverse reaction zb Disposition: 11/15 09:27 Co-signature as Attending Physician, Ezequiel Almeida MD I agree with the assessment and chani plan of care. Disposition: 11/14/20 18:48 Discharged to Home. Impression: Pain in ankle and joints of foot. - Condition is Stable. - Discharge Instructions: Abrasion, [id number], Ankle Pain. - Work release form, Medication Reconciliation Form, Thank You Letter, Antibiotic Education, Prescription Opioid Use form. - Follow up: Emergency Department; When: As needed; Reason: Worsening of condition. Follow up: Private Physician; When: 2 - 3 days; Reason: Recheck today's complaints, Continuance of care, Re-evaluation by your physician. Signatures: Dispatcher [employer] EDJaye Velasquez, ELECTRICAL AND INSTRUMENT ENGINEER-C ELECTRICAL AND INSTRUMENT ENGINEER-Ezequiel Ruiz MD MD cha Munoz, Edgar, RN Candice Wong RN RN zadelita Corrections: (The following items were deleted from the chart) 11/14 19:16 18:48 11/14/2020 18:48 Discharged to Home. Impression: Pain in ankle and joints of zb foot. Condition is Stable. Forms are Medication Reconciliation Form, Thank You Letter, Antibiotic Education, Prescription Opioid Use. Follow up: Emergency Department; When: As needed; Reason: Worsening of condition. Follow up: Private Physician; When: 2 - 3 days; Reason: Recheck today's complaints, Continuance of care, Re-evaluation by your physician. kb
[2020-11-14 19:23] VITALS: TEMP 98; O2SAT 99
[2020-11-14 19:24] VITALS: BP 115/62
[2020-11-14] MEDS ORDERED: HYDROCODONE/APAP 5/325 MG TAB ONE (19:27)
== END 2020-11-14 19:16 | disposition home or self-care (01) ==
LOC: ER 17:48
DX: M25.572 Pain in left ankle and joints of left foot (principal)
CPT/HCPCS: 99283